=== PATIENT | female | born 1995 | race Caucasian/White ===

== ENCOUNTER 2016-11-05 07:52 | Emergency (ER) | payer BC ==
[2016-11-05 08:04] VITALS: RESP 20
[2016-11-05] MEDS ORDERED: IPRATROPIUM-ALBUTEROL 3 ML NEB INHALATION STA (08:45)
[2016-11-05] MEDS ORDERED: ACETAMINOPHEN TAB 325 MG TAB PO STA (08:46)
--- NOTE | 2016-11-05 08:49 | ED ---
General Adult HPI - General Chief complaint: Fever Stated complaint: Fever Time Seen by Provider: 11/05/16 08:10 Source: patient, RN notes reviewed Mode of arrival: ambulatory Limitations: no limitations - History of Present Illness Initial comments: Patient is a 21-year-old female presents emergency room for evaluation of cough and congestion. Patient states on Thursday she began with a deep cough. Patient states that she has been having on and off fevers. Patient states that she went to urgent care facility yesterday and she was told she had bronchitis and was sent home with a Z-Abhijeet and prednisone taper. Patient states that she is still not feeling better. Patient states this morning she had a fever of 102.0 F. Patient denies taking Tylenol or Motrin this morning. Patient denies receiving her influenza vaccine this year. Patient denies being tested for influenza yesterday. Patient denies chest pain, shortness of breath, headache, dizziness. Patient states that she quit smoking in August. Patient denies history of asthma. Patient denies ear pain or throat pain. - Related Data Home Medications Medication Instructions Recorded Confirmed Albuterol Inhaler [Ventolin Hfa 2 puff INHALATION RT-Q6H PRN 11/05/16 11/05/16 Inhaler] Azithromycin [Zithromax Z-pack] See Taper PO DAILY 11/05/16 11/05/16 Fluticasone Nasal [place] [Flonase 2 spr EA NOSTRIL DAILY 11/05/16 11/05/16 Nasal [place]] Montelukast Sodium [Singulair] 10 mg PO HS 11/05/16 11/05/16 methylPREDNISolone [Medrol Dose See Taper PO DIRECTED 11/05/16 11/05/16 Pack] Previous Rx's Medication Instructions Recorded Oseltamivir [Tamiflu] 75 mg PO Q12HR 5 Days 11/05/16 Allergies Allergy/AdvReac Type Severity Reaction Status Date / Time amoxicillin Allergy Unknown Verified 11/05/16 08:17 divalproex sodium Allergy Unknown Verified 11/05/16 08:17 [From [facility]] Review of Systems ROS Statement: Those systems with pertinent positive or pertinent negative responses have been documented in the HPI. ROS Other: All systems not noted in ROS Statement are negative. Past Medical History Past Medical History: No Reported History History of Any Multi-Drug Resistant Organisms: None Reported Past Surgical History: Orthopedic Surgery, Tonsillectomy Past Anesthesia/Blood Transfusion Reactions: No Reported Reaction Past Psychological History: Anxiety, Bipolar, Depression Smoking Status: Former smoker Past Alcohol Use History: Occasional Past Drug Use History: None Reported Additional Drug Use History / Comment(s): socially pt. drinks and smokes marijuana on occassion General Exam - General Exam Comments Initial Comments: Sitting in exam room, no acute distress. Limitations: no limitations General appearance: alert, in no apparent distress Head exam: Present: atraumatic, normocephalic, normal inspection Eye exam: Present: normal appearance ENT exam: Present: normal exam, normal oropharynx, mucous membranes moist, TM's normal bilaterally, normal external ear exam Neck exam: Present: normal inspection Respiratory exam: Present: wheezes. Absent: respiratory distress Cardiovascular Exam: Present: normal rhythm, tachycardia, normal heart sounds Extremities exam: Present: normal inspection Back exam: Present: normal inspection Neurological exam: Present: alert, oriented X3, CN II-XII intact, normal gait Psychiatric exam: Present: normal affect, normal mood Skin exam: Present: warm, dry, intact, normal color. Absent: rash Course Vital Signs 11/05/16 11/05/16 11/05/16 08:02 09:05 09:13 Temperature 100.8 F H Pulse Rate 104 H 94 94 Respiratory 20 Rate Blood Pressure 131/56 O2 Sat by Pulse 97 Oximetry Medical Decision Making - Medical Decision Making Patient is a 21-year-old female presents to the emergency room for evaluation of fever, cough and congestion since Thursday. Patient positive for influenza A. Chest x-ray negative for pneumonia. Patient was started on antibiotics and prednisone yesterday for bronchitis. Discussed with patient that she can discontinue the antibiotics since influenza is viral. Patient will be started on Tamiflu. Patient states she understands everything that was discussed with her. Return parameters discussed. Case discussed with Dr. Daly. - Lab Data Lab Results 11/05/16 Range/Units 08:30 Influenza Type A RNA Detected H (Not Detectd) Influenza Type B (PCR) Not Detected (Not Detectd) - Radiology Data Radiology results: report reviewed, image reviewed Disposition Clinical Impression: Influenza A Disposition: HOME SELF-CARE Condition: Good Instructions: Influenza (ED) Additional Instructions: Alternate Tylenol and Motrin every 3 hours. Drink plenty fluids. Please follow up with primary care provider in 1-2 days. If any new symptom arises or symptoms worsen, return to ER as soon as possible. Prescriptions: Oseltamivir [Tamiflu] 75 mg PO Q12HR 5 Days Referrals: Ehsan Carreno DO [Primary Care Provider] - 1-2 days Time of Disposition: 09:07
--- NOTE | 2016-11-05 09:03 | XR ---
EXAMINATION TYPE: XR chest 2V DATE OF EXAM: 11/05/2016 8:55 AM COMPARISON: Prior chest x-ray January HISTORY: Fever and cough TECHNIQUE: Frontal and lateral views of the chest are obtained. FINDINGS: There is no focal air space opacity, pleural effusion, or pneumothorax seen. The cardiac silhouette size is within normal limits. The osseous structures are intact. IMPRESSION: No acute cardiopulmonary process.
[2016-11-05 09:57] VITALS: BP 124/78; PULSE 98; TEMP 100.2
== END 2016-11-05 09:57 | disposition home or self-care (01) ==
LOC: EC 07:52
DX: J10.1 Influenza due to other identified influenza virus with other respiratory manifestations (principal); Z87.891 Personal history of nicotine dependence; Z88.0 Allergy status to penicillin; Z88.8 Allergy status to other drugs, medicaments and biological substances; Z79.899 Other long term (current) drug therapy; Z79.51 Long term (current) use of inhaled steroids; Z79.52 Long term (current) use of systemic steroids
CPT/HCPCS: 71020; 87502; 94640; 99283

== ENCOUNTER 2017-03-28 08:35 | Emergency (ER) | payer BC ==
[2017-03-28 08:48] VITALS: BP 134/87; PULSE 75; RESP 16; TEMP 98.3
[2017-03-28] MEDS ORDERED: IBUPROFEN 800 MG TAB PO STA (09:06)
--- NOTE | 2017-03-28 09:12 | ED ---
Lower Extremity Injury HPI - General Chief Complaint: Extremity Injury, Lower Stated Complaint: LEFT KNEE PAIN Time Seen by Provider: 03/28/17 08:50 Source: patient, RN notes reviewed Mode of arrival: ambulatory Limitations: no limitations - History of Present Illness Initial Comments: patient is a 22-year-old female presents emergency room for evaluation of left knee pain. Patient states about a week ago she twisted her leg the wrong way and felt a tiny pop on the lateral portion of her left knee. Patient states she 's been having a clicking sensation in her left knee ever since. Patient states on Thursday she slipped and fell hyperflexing her left knee. Patient states and having increasing pain. Patient does state when she was in high school she had a torn meniscus in her left knee that was repaired. Patient states the torn meniscus pain feels similar. Patient states that slight swelling in her left knee. Patient denies redness or heat from her knee. Patient denies numbness or tingling going down her leg. Patient states the pain is worse when she weight bears or bends her knee. Patient denies taking anything for pain. 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 Patient denies any other injuries during the fall on Thursday. Patient denies any other symptoms or complaints. - Related Data Home Medications Medication Instructions Recorded Confirmed Albuterol Inhaler [Ventolin Hfa 2 puff INHALATION RT-Q6H PRN 11/05/16 11/05/16 Inhaler] Azithromycin [Zithromax Z-pack] See Taper PO DAILY 11/05/16 11/05/16 Fluticasone Nasal [place] [Flonase 2 spr EA NOSTRIL DAILY 11/05/16 11/05/16 Nasal [place]] Montelukast Sodium [Singulair] 10 mg PO HS 11/05/16 11/05/16 methylPREDNISolone [Medrol Dose See Taper PO DIRECTED 11/05/16 11/05/16 Pack] Previous Rx's Medication Instructions Recorded Oseltamivir [Tamiflu] 75 mg PO Q12HR 5 Days 11/05/16 Ibuprofen [Motrin] 800 mg PO Q8HR PRN #20 tab 03/28/17 Allergies Allergy/AdvReac Type Severity Reaction Status Date / Time amoxicillin Allergy Unknown Verified 03/28/17 08:48 divalproex sodium Allergy Unknown Verified 03/28/17 08:48 [From [facility]] Review of Systems ROS Statement: Those systems with pertinent positive or pertinent negative responses have been documented in the HPI. ROS Other: All systems not noted in ROS Statement are negative. Past Medical History Past Medical History: No Reported History History of Any Multi-Drug Resistant Organisms: None Reported Past Surgical History: Orthopedic Surgery, Tonsillectomy Past Anesthesia/Blood Transfusion Reactions: No Reported Reaction Past Psychological History: Anxiety, Bipolar, Depression Smoking Status: Former smoker Past Alcohol Use History: Occasional Past Drug Use History: None Reported General Exam - General Exam Comments Initial Comments: sitting in exam room, no acute distress. Limitations: no limitations General appearance: alert, in no apparent distress Head exam: Present: atraumatic, normocephalic, normal inspection Eye exam: Present: normal appearance ENT exam: Present: normal exam Neck exam: Present: normal inspection Respiratory exam: Absent: respiratory distress Left Upper Leg exam: Present: normal inspection, full ROM. Absent: tenderness Knee exam: Present: normal inspection, full ROM, tenderness (tenderness on palpating over her lateral knee joint), full knee extension. Absent: deformity , pain/laxity with valgus, pain/laxity with varus Lower Leg exam: Present: normal inspection, full ROM. Absent: tenderness Neurovascular tendon exam: Present: no vascular compromise. Absent: pulse deficit (2+ dorsal pedal and posterior tibial pulses), abnormal cap refill ( capillary refill less than 2 seconds) Back exam: Present: normal inspection Neurological exam: Present: alert, oriented X3, CN II-XII intact Psychiatric exam: Present: normal affect, normal mood Skin exam: Present: warm, dry, intact, normal color. Absent: rash Course Vital Signs 03/28/17 08:46 Temperature 98.3 F Pulse Rate 75 Respiratory 16 Rate Blood Pressure 134/87 O2 Sat by Pulse 98 Oximetry Medical Decision Making - Medical Decision Making Patient's 22-year-old female since emergency room for evaluation of left knee pain. Patient does appear to have lateral meniscus pain. Patient advised follow-up with computer technical support specialist. X-ray shows no acute findings. Patient placed in an Chang wrap and sent home with anti-inflammatories. Patient states she understands everything that was discussed with her. Return parameters discussed. Case discussed with Dr. Jensen. - Radiology Data Radiology results: report reviewed, image reviewed Disposition Clinical Impression: Left lateral knee pain Disposition: HOME SELF-CARE Condition: Good Instructions: Knee Pain (ED) Additional Instructions: Ice on and off for 10-15 minutes for the next 24-48 hours. Take ibuprofen as needed for pain. Please follow-up with computer technical support specialist for further evaluation. If new symptoms develop or symptoms worsen, please return to the ER. Prescriptions: Ibuprofen [Motrin] 800 mg PO Q8HR PRN #20 tab PRN Reason: Pain Referrals: Ehsan Carreno DO [Primary Care Provider] - 1-2 days Osawldo Thomas DO [Doctor of Osteopathic Medicine] - 1-2 days Time of Disposition: 09:41
--- NOTE | 2017-03-28 09:39 | XR ---
EXAMINATION TYPE: XR knee complete LT DATE OF EXAM: 03/28/2017 COMPARISON: NONE HISTORY: Knee pain TECHNIQUE: 3 views FINDINGS: I see no fracture nor dislocation. Joint spaces are normal. IMPRESSION: Negative left knee exam.
== END 2017-03-28 09:45 | disposition home or self-care (01) ==
LOC: EC 08:35
DX: M25.562 Pain in left knee (principal); Z87.891 Personal history of nicotine dependence; Z79.51 Long term (current) use of inhaled steroids; Z79.52 Long term (current) use of systemic steroids; Z79.899 Other long term (current) drug therapy; Z88.0 Allergy status to penicillin; Z88.8 Allergy status to other drugs, medicaments and biological substances; W01.0XXA Fall on same level from slipping, tripping and stumbling without subsequent striking against object, initial encounter
CPT/HCPCS: 99283